=== PATIENT | female | born 1965 | race Caucasian/White ===

== ENCOUNTER → 2023-06-19 | Outpatient (CLI) | payer OTHER ==
[~2023-06-19] MED LIST: METOPROLOL SR25 MG PO; MOTRIN800 MG PO
== END | disposition home or self-care (01) ==
LOC: CT 12:52
PROVIDERS: ATTEND Nurse Practitioner
DX: R31.9 Hematuria, unspecified (principal); N28.1 Cyst of kidney, acquired; K86.89 Other specified diseases of pancreas; M25.78 Osteophyte, vertebrae

== ENCOUNTER 2024-09-24 10:21 | Emergency (ER) | payer OTHER ==
[~2024-09-24] VITALS: Ht 165.1 cm; Wt 96.2 kg
[2024-09-24] MEDS ORDERED: Ondansetron Hydrochloride 4 MG/2 ML VIAL IV ONE (10:40)
[2024-09-24] MEDS ORDERED: SODIUM CHLORIDE 0.9% 1,000 ML IV ONE (10:40)
[2024-09-24 11:01] LABS: HEMATOCRIT 47.9 % (37.0-47.0); MEAN CELL VOLUME 86.6 fl (81.0-99.0); MEAN CORPUSCULAR HGB 26.9 pg (27.0-31.0); MEAN CORPUSCULAR HGB CONC 31.1 g/dl (33.0-37.0); MEAN PLATELET VOLUME 9.9 fl (9.6-12.3); PLATELET COUNT AUTOMATED 195 10*3/uL (130-400); RED BLOOD COUNT 5.53 10*6/uL (4.10-5.10); RED CELL DISTRI WIDTH 13.3 % (0-14.5); WHITE BLOOD COUNT 8.9 10*3/uL (4.8-10.8)
[2024-09-24 11:02] LABS: MANUAL DIFF REFLEX YES
[2024-09-24] MEDS ORDERED: Pantoprazole Sodium 40 MG VIAL IV ONE (11:20)
[2024-09-24 11:31] LABS: ALKALINE PHOSPHATASE 84 U/L (46-116); BUN 17 mg/dl (9-23); CHLORIDE 105 mmol/L (98-107); LIPASE 30 U/L (12-53); SGPT/ALT 17 U/L (5-49); TOTAL PROTEIN 7.1 gm/dL (6.0-8.0)
[2024-09-24 11:32] LABS: PLATELET SUFFICIENCY NORMAL (NORMAL); TOTAL CELLS COUNTED 100 #CELLS
[2024-09-24] MEDS ORDERED: ACETAMINOPHEN 325 MG TAB PO ONE (12:05)
[2024-09-24] MEDS ORDERED: SODIUM CHLORIDE 0.9% 1,000 ML IV SCH (12:10)
[2024-09-24] MEDS ORDERED: Ondansetron4 MG PO (13:55)
[2024-09-24 14:32] LABS: BILIRUBIN Negative (Negative); BLOOD Negative (Negative); CLARITY Clear (Clear); COLOR Yellow (Yellow); GLUCOSE 2+ (Negative); KETONE 1+ (Negative); LEUKO ESTERASE Negative (Negative); NITRITE Negative (Negative); UROBILINOGEN 0.2 E.U./dl (0.0-1.0)
[2024-09-24 14:58] LABS: BACTERIA 1+; WBC 0-2 wbc/hpf (0-5)
[2024-09-24 14:59] LABS: MUCOUS 1+
== END 2024-09-24 14:38 | disposition home or self-care (01) ==
LOC: ED 10:21
PROVIDERS: Internal Medicine
DX: K52.9 Noninfective gastroenteritis and colitis, unspecified (principal); E11.9 Type 2 diabetes mellitus without complications; Z20.822 Contact with and (suspected) exposure to COVID-19; Z79.899 Other long term (current) drug therapy; Z88.5 Allergy status to narcotic agent; Z88.8 Allergy status to other drugs, medicaments and biological substances; Z98.890 Other specified postprocedural states

== ENCOUNTER → 2025-04-16 | Outpatient (CLI) | payer OTHER ==
[~2025-04-16] MED LIST changes: +Ondansetron4 MG PO
== END | disposition home or self-care (01) ==
LOC: CT 01:18
PROVIDERS: ATTEND Nurse Practitioner
DX: R10.85 Abdominal pain of multiple sites (principal); M25.70 Osteophyte, unspecified joint; I70.0 Atherosclerosis of aorta